=== PATIENT | male | born 1970 | race Caucasian/White ===

== ENCOUNTER → 2017-03-14 10:13 | Outpatient (CLI) | payer MEDICAID, SELFPAY ==
--- NOTE | 2017-03-14 10:18 | MRI_ITS ---
STUDY: MRI THORACIC SPINE WITH AND WITHOUT CONTRAST REASON FOR EXAM: Male, 46 years old. MS F/U, BILATERAL LEG NUMBNESS TECHNIQUE: 8 ml of Gadavist was administered intravenously for the contrast portion of the examination. COMPARISON: None. FINDINGS: Normal kyphosis of the thoracic spine. There is no substantial scoliosis. T1-2, T2-3, T3-4, T4-5, T5-6, T6-7, T7-8, T8-9,T10-11, T11-12: Normal endplates. Normal disc hydration, heights and morphology of the corresponding intervertebral discs. Normal central canal and intervertebral neural foramina at the corresponding levels. There is a small broad-based midline disc herniation at T9-10 resulting in mild narrowing of the spine canal. There is increased T2 signal lesion in the thoracic spinal cord at T9-10 suggesting demyelinating lesion. There is no abnormal enhancement after contrast administration. Normal conus medullaris that terminates at the L1 level. The soft tissue structures are unremarkable. There is no enhancing abnormality. MRI/Spine Thoracic W/WO Contrast IMPRESSION: There is increased T2 signal lesion in the thoracic spinal cord at T9-10 suggesting demyelinating lesion. There is no abnormal enhancement after contrast administration. Electronically Signed: Marcella Perry MD at 4:58 EST Tel , Service support ,
--- NOTE | 2017-03-14 10:18 | MRI_ITS ---
STUDY: MRI BRAIN WITH CONTRAST REASON FOR EXAM: Male, 46 years old. Multiple sclerosis follow-up TECHNIQUE: Standardized multiplanar fat and water weighted pulse sequences were obtained. 8 ml of Gadavist contrast material was administered intravenously for the contrast portion of the examination. COMPARISON: February 28 2017 FINDINGS: There are no enhancing lesions following contrast administration. Specifically, there is no evidence for known multiple sclerosis plaque enhancement to suggest acute demyelination at this time MRI/Brain WITH Contrast IMPRESSION: No evidence for acute demyelinating plaques of multiple sclerosis Electronically Signed: Sixto Torres MD at 22:26 EST , Service support ,
== END ==
PROVIDERS: Visit Provider Psychiatry & Neurology Neurology
DX: G35 Multiple sclerosis (principal)
CPT/HCPCS: 70552; 72157; A9585

== ENCOUNTER → 2020-10-13 | Outpatient (CLI) | payer MEDICAID, SELFPAY | END | disposition home or self-care (01) | LOC: LABSPEC 12:34 | PROVIDERS: Visit Provider Physician Assistant | DX: Z20.822 Contact with and (suspected) exposure to COVID-19 (principal) | CPT/HCPCS: 87635; U0005; U0003 ==